=== PATIENT | female | born 1950 | race African-American/Black ===

== ENCOUNTER 2020-09-28 17:36 | Emergency (ER) | payer OTHER ==
[2020-09-28] MEDS ORDERED: SILVER NITRATE 75% APPLIC STCK 1 PKT EACH ONE (18:22)
[2020-09-28] MEDS ORDERED: LIDOCAINE 1%/EPI 1:100000 (50 ML MULTI DOSE VIAL) ONE (18:28)
[2020-09-28 18:32] VITALS: BP 151/79; PULSE 70; TEMP 98.2; BMI 28.4
== END 2020-09-28 21:49 | disposition home or self-care (01) ==
LOC: JER 17:36
DX: R58 Hemorrhage, not elsewhere classified (principal); I87.311 Chronic venous hypertension (idiopathic) with ulcer of right lower extremity
CPT/HCPCS: 99284-25

== ENCOUNTER 2021-01-04 12:40 | Inpatient (IN) | payer OTHER ==
[2021-01-04 12:46] VITALS: BMI 26.1
[2021-01-04 15:09] LABS: BASO % 0.6 % (0-2.0); EOS % 0.9 % (0-4.5); HEMOGLOBIN 13.6 GM/dL (10.7-15.3); LYMPH % 22.8 % (8-40); MCH 31.3 pg (25.7-33.7); MCHC 33.1 g/dl (32.0-36.0); MEAN CELL VOLUME 94.5 fl (80-96); MEAN PLT VOLUME 10.2 fl (7.5-11.1); MONO % 6.9 % (3.8-10.2); NEUT % 68.8 % (42.8-82.8); PLATELET COUNT 170 10^3/uL (134-434); RBC 4.34 M/mm3 (3.60-5.2); RDW 14.4 % (11.6-15.6); WHITE BLOOD COUNT 5.7 K/mm3 (4.0-10.0)
[2021-01-04 15:22] LABS: INR 1.02 (0.83-1.09); PROTHROMBIN TIME (PATIENT) 12.3 SEC (9.7-13.0)
[2021-01-04 15:24] LABS: ACTIVATED PTT 26.4 SECONDS (25.2-36.5)
[2021-01-04 15:39] LABS: CALCIUM 9.3 mg/dL (8.5-10.1)
[2021-01-04 15:40] LABS: ALBUMIN 3.3 g/dl (3.4-5.0); BLOOD UREA NITROGEN 9.6 mg/dL (7-18)
[2021-01-04 15:43] LABS: CREATININE 0.7 mg/dL (0.55-1.3)
[2021-01-04 15:45] LABS: BILIRUBIN,TOTAL 1.3 mg/dL (0.2-1); TOT PROT 9.5 g/dl (6.4-8.2)
[2021-01-04 15:51] LABS: ERYTHROCYTE SEDIMENTATION RATE 45 mm/hr (0-30)
[2021-01-04] MEDS ORDERED: AZTREONAM 1 GM in DEXTROSE 5%-WATER - 50 ML IVPB ONE (16:54)
[2021-01-04] MEDS ORDERED: VANCOMYCIN 1 GM in D5W (PRE-DOCKED) 1,000 MG/250 ML IVPB ONE (16:54)
[2021-01-04] MEDS ORDERED: AZTREONAM 1 GM VIAL (RESTRICTED TO ID) ONE (17:06)
[2021-01-04] MEDS ORDERED: VANCOMYCIN 1 GRAM (PRE-DOCKED) 1,000 MG/250 ML BAG IVPB ONE (17:06)
[2021-01-05] MEDS ORDERED: AZTREONAM 1 GM in DEXTROSE 5%-WATER - 50 ML IVPB SCH (02:00)
[2021-01-05] MEDS ORDERED: DEXTROSE 5%-WATER - 50 ML IVPB ONE ×2 (02:16→10:37)
[2021-01-05] MEDS ORDERED: AZTREONAM 1 GM VIAL (RESTRICTED TO ID) ONE ×2 (02:16→10:37)
[2021-01-05] MEDS: AZTREONAM 1 GM in DEXTROSE 5%-WATER - 50 ML IVPB SCH ×2 (02:47→11:12)
[2021-01-05] MEDS ORDERED: ACETAMINOPHEN 325 MG TABLET (FP) PO PRN (04:08)
[2021-01-05] MEDS ORDERED: VANCOMYCIN 1 GM in D5W (PRE-DOCKED) 1,000 MG/250 ML IVPB SCH (06:00)
[2021-01-05 07:46] LABS: BASO % 0.9 % (0-2.0); EOS % 1.9 % (0-4.5); HEMATOCRIT 34.6 % (32.4-45.2); HEMOGLOBIN 11.5 GM/dL (10.7-15.3); LYMPH % 33.6 % (8-40); MCH 31.5 pg (25.7-33.7); MCHC 33.3 g/dl (32.0-36.0); MEAN CELL VOLUME 94.6 fl (80-96); MEAN PLT VOLUME 8.6 fl (7.5-11.1); MONO % 12.8 % (3.8-10.2); NEUT % 50.8 % (42.8-82.8); PLATELET COUNT 137 10^3/uL (134-434); RBC 3.65 M/mm3 (3.60-5.2); RDW 14.5 % (11.6-15.6); WHITE BLOOD COUNT 4.7 K/mm3 (4.0-10.0)
[2021-01-05 08:07] LABS: CALCIUM 8.7 mg/dL (8.5-10.1)
[2021-01-05 08:11] LABS: CREATININE 0.6 mg/dL (0.55-1.3)
[2021-01-05 08:12] LABS: BILIRUBIN,TOTAL 0.7 mg/dL (0.2-1)
[2021-01-05] MEDS ORDERED: POTASSIUM CHLORIDE ORAL LIQUID 20 MEQ/15 ML PO ONE ×2 (08:12→16:54)
[2021-01-05 08:15] LABS: ALBUMIN 2.6 g/dl (3.4-5.0); TOT PROT 7.3 g/dl (6.4-8.2)
[2021-01-05] MEDS ORDERED: amLODIPine BESYLATE 5 MG TABLET (FP) PO SCH (10:00)
[2021-01-05] MEDS: ENOXAPARIN NA (PORCINE) 40 MG/0.4 ML DISP.SYRIN SQ SCH (11:13)
[2021-01-05] MEDS: ESCITALOPRAM OXALATE 10 MG TABLET PO SCH (11:13)
[2021-01-05] MEDS: LOSARTAN POTASSIUM 50 MG TABLET PO SCH (13:14)
[2021-01-05 16:02] LABS: BASO % 0.6 % (0-2.0); EOS % 1.4 % (0-4.5); HEMATOCRIT 38.7 % (32.4-45.2); HEMOGLOBIN 12.8 GM/dL (10.7-15.3); LYMPH % 28.3 % (8-40); MCH 31.5 pg (25.7-33.7); MCHC 33.2 g/dl (32.0-36.0); MEAN CELL VOLUME 94.9 fl (80-96); MEAN PLT VOLUME 9.4 fl (7.5-11.1); MONO % 8.7 % (3.8-10.2); PLATELET COUNT 155 10^3/uL (134-434); RBC 4.08 M/mm3 (3.60-5.2); RDW 14.3 % (11.6-15.6); WHITE BLOOD COUNT 4.7 K/mm3 (4.0-10.0)
[2021-01-05 16:27] LABS: CALCIUM 9.1 mg/dL (8.5-10.1)
[2021-01-05 16:28] LABS: BLOOD UREA NITROGEN 10.4 mg/dL (7-18)
[2021-01-05 16:31] LABS: CREATININE 0.7 mg/dL (0.55-1.3)
[2021-01-05] MEDS ORDERED: DEXTROSE 5%-WATER 100 ML IVPB ONE (16:58)
[2021-01-05] MEDS: CEFTRIAXONE 2 GM in DEXTROSE 5%-WATER 100 ML IVPB SCH (17:01)
[2021-01-05] MEDS: VANCOMYCIN 1 GRAM (PRE-DOCKED) 1,000 MG/250 ML BAG IVPB SCH (18:16)
[2021-01-06] MEDS: VANCOMYCIN 1 GRAM (PRE-DOCKED) 1,000 MG/250 ML BAG IVPB SCH ×2 (04:12→17:24)
[2021-01-06 08:48] LABS: BASO % 0.7 % (0-2.0); EOS % 1.8 % (0-4.5); HEMATOCRIT 37.3 % (32.4-45.2); HEMOGLOBIN 12.4 GM/dL (10.7-15.3); LYMPH % 42.8 % (8-40); MCH 32.1 pg (25.7-33.7); MCHC 33.2 g/dl (32.0-36.0); MEAN CELL VOLUME 96.7 fl (80-96); MEAN PLT VOLUME 9.4 fl (7.5-11.1); MONO % 11.9 % (3.8-10.2); NEUT % 42.8 % (42.8-82.8); PLATELET COUNT 158 10^3/uL (134-434); RBC 3.86 M/mm3 (3.60-5.2); RDW 14.5 % (11.6-15.6); WHITE BLOOD COUNT 3.7 K/mm3 (4.0-10.0)
[2021-01-06] MEDS ORDERED: DEXTROSE 5%-WATER 100 ML IVPB ONE (09:02)
[2021-01-06 09:11] LABS: ALBUMIN 2.9 g/dl (3.4-5.0); BLOOD UREA NITROGEN 7.9 mg/dL (7-18); CREATININE 0.6 mg/dL (0.55-1.3)
[2021-01-06 09:12] LABS: BILIRUBIN,TOTAL 0.5 mg/dL (0.2-1)
[2021-01-06 09:13] LABS: CALCIUM 9.2 mg/dL (8.5-10.1)
[2021-01-06 09:14] LABS: MAGNESIUM 1.7 mg/dL (1.8-2.4)
[2021-01-06] MEDS: ESCITALOPRAM OXALATE 10 MG TABLET PO SCH (09:23)
[2021-01-06] MEDS: ENOXAPARIN NA (PORCINE) 40 MG/0.4 ML DISP.SYRIN SQ SCH (09:23)
[2021-01-06] MEDS: LOSARTAN POTASSIUM 50 MG TABLET PO SCH (09:23)
[2021-01-06] MEDS: amLODIPine BESYLATE 5 MG TABLET (FP) PO SCH (09:23)
[2021-01-06] MEDS: CEFTRIAXONE 2 GM in DEXTROSE 5%-WATER 100 ML IVPB SCH (09:24)
[2021-01-06] MEDS ORDERED: methaDONE HCL 10 MG TABLET ONE (11:34)
[2021-01-06] MEDS ORDERED: methaDONE HCL 40 MG DISPERSABLE TABLET ONE (11:35)
[2021-01-06] MEDS ORDERED: PT OWN MED DRAWER 7, Y5N ONE (14:32)
[2021-01-07] MEDS: VANCOMYCIN 1 GRAM (PRE-DOCKED) 1,000 MG/250 ML BAG IVPB SCH ×2 (04:29→17:14)
[2021-01-07] MEDS ORDERED: methaDONE HCL 40 MG DISPERSABLE TABLET ONE (05:45)
[2021-01-07] MEDS ORDERED: methaDONE HCL 10 MG TABLET ONE (05:45)
[2021-01-07] MEDS ORDERED: DEXTROSE 5%-WATER 100 ML IVPB ONE (09:06)
[2021-01-07] MEDS: amLODIPine BESYLATE 5 MG TABLET (FP) PO SCH (10:01)
[2021-01-07] MEDS: ESCITALOPRAM OXALATE 10 MG TABLET PO SCH (10:01)
[2021-01-07] MEDS: LOSARTAN POTASSIUM 50 MG TABLET PO SCH (10:01)
[2021-01-07] MEDS: ENOXAPARIN NA (PORCINE) 40 MG/0.4 ML DISP.SYRIN SQ SCH (10:01)
[2021-01-07] MEDS: CEFTRIAXONE 2 GM in DEXTROSE 5%-WATER 100 ML IVPB SCH (10:02)
[2021-01-07] MEDS: MAG HYDROX/ALH/SMC/DPHA/LIDO 240 ML MOUTHWASH MM SCH ×3 (12:49→23:40)
[2021-01-07] MEDS ORDERED: PT OWN MED DRAWER 7, Y5N ONE (23:38)
[2021-01-08] MEDS: VANCOMYCIN 1 GRAM (PRE-DOCKED) 1,000 MG/250 ML BAG IVPB SCH ×2 (04:45→17:05)
[2021-01-08] MEDS ORDERED: methaDONE HCL 40 MG DISPERSABLE TABLET ONE (05:34)
[2021-01-08] MEDS ORDERED: methaDONE HCL 10 MG TABLET ONE (05:34)
[2021-01-08] MEDS: MAG HYDROX/ALH/SMC/DPHA/LIDO 240 ML MOUTHWASH MM SCH ×3 (06:05→18:11)
[2021-01-08] MEDS ORDERED: DEXTROSE 5%-WATER 100 ML IVPB ONE (09:30)
[2021-01-08] MEDS: ENOXAPARIN NA (PORCINE) 40 MG/0.4 ML DISP.SYRIN SQ SCH (09:34)
[2021-01-08] MEDS: ESCITALOPRAM OXALATE 10 MG TABLET PO SCH (09:34)
[2021-01-08] MEDS: LOSARTAN POTASSIUM 50 MG TABLET PO SCH (09:34)
[2021-01-08] MEDS: CEFTRIAXONE 2 GM in DEXTROSE 5%-WATER 100 ML IVPB SCH (09:35)
[2021-01-08] MEDS: amLODIPine BESYLATE 5 MG TABLET (FP) PO SCH (09:35)
[2021-01-08 09:38] LABS: HEMATOCRIT 37.3 % (32.4-45.2); HEMOGLOBIN 12.4 GM/dL (10.7-15.3); MCH 32.3 pg (25.7-33.7); MCHC 33.2 g/dl (32.0-36.0); MEAN CELL VOLUME 97.2 fl (80-96); MEAN PLT VOLUME 9.7 fl (7.5-11.1); PLATELET COUNT 160 10^3/uL (134-434); RBC 3.84 M/mm3 (3.60-5.2); RDW 14.8 % (11.6-15.6); WHITE BLOOD COUNT 5.6 K/mm3 (4.0-10.0)
[2021-01-08 10:04] LABS: BLOOD UREA NITROGEN 16.9 mg/dL (7-18); CALCIUM 9.4 mg/dL (8.5-10.1)
[2021-01-08 10:08] LABS: CREATININE 1.6 mg/dL (0.55-1.3)
[2021-01-08] MEDS ORDERED: PT OWN MED DRAWER 7, Y5N ONE (12:16)
[2021-01-08] MEDS: PHENOL 177 ML SPRAY BOTTLE MM PRN (12:18)
[2021-01-09] MEDS: MAG HYDROX/ALH/SMC/DPHA/LIDO 240 ML MOUTHWASH MM SCH ×4 (00:20→19:24)
[2021-01-09] MEDS: VANCOMYCIN 1 GRAM (PRE-DOCKED) 1,000 MG/250 ML BAG IVPB SCH ×2 (04:53→16:21)
[2021-01-09] MEDS ORDERED: methaDONE HCL 10 MG TABLET ONE (06:40)
[2021-01-09] MEDS ORDERED: methaDONE HCL 40 MG DISPERSABLE TABLET ONE (06:41)
[2021-01-09] MEDS ORDERED: DEXTROSE 5%-WATER 100 ML IVPB ONE (09:42)
[2021-01-09] MEDS: amLODIPine BESYLATE 5 MG TABLET (FP) PO SCH (09:46)
[2021-01-09] MEDS: LOSARTAN POTASSIUM 50 MG TABLET PO SCH (09:46)
[2021-01-09] MEDS: ESCITALOPRAM OXALATE 10 MG TABLET PO SCH (09:46)
[2021-01-09] MEDS: ENOXAPARIN NA (PORCINE) 40 MG/0.4 ML DISP.SYRIN SQ SCH (09:46)
[2021-01-09] MEDS: CEFTRIAXONE 2 GM in DEXTROSE 5%-WATER 100 ML IVPB SCH (09:47)
[2021-01-09] MEDS: PHENOL 177 ML SPRAY BOTTLE MM PRN (11:39)
[2021-01-09] MEDS ORDERED: PT OWN MED DRAWER 7, Y5N ONE (11:41)
[2021-01-10] MEDS: MAG HYDROX/ALH/SMC/DPHA/LIDO 240 ML MOUTHWASH MM SCH ×4 (00:30→17:38)
[2021-01-10] MEDS: VANCOMYCIN 1 GRAM (PRE-DOCKED) 1,000 MG/250 ML BAG IVPB SCH (05:10)
[2021-01-10] MEDS ORDERED: methaDONE HCL 40 MG DISPERSABLE TABLET ONE (06:15)
[2021-01-10] MEDS ORDERED: methaDONE HCL 10 MG TABLET ONE (06:15)
[2021-01-10 09:14] LABS: BASO % 0.3 % (0-2.0); EOS % 0.9 % (0-4.5); HEMATOCRIT 37.6 % (32.4-45.2); HEMOGLOBIN 12.5 GM/dL (10.7-15.3); LYMPH % 15.1 % (8-40); MCH 31.8 pg (25.7-33.7); MCHC 33.2 g/dl (32.0-36.0); MEAN CELL VOLUME 95.8 fl (80-96); MEAN PLT VOLUME 9.3 fl (7.5-11.1); MONO % 9.6 % (3.8-10.2); NEUT % 74.1 % (42.8-82.8); PLATELET COUNT 153 10^3/uL (134-434); RBC 3.92 M/mm3 (3.60-5.2); RDW 14.9 % (11.6-15.6); WHITE BLOOD COUNT 5.3 K/mm3 (4.0-10.0)
[2021-01-10] MEDS ORDERED: DEXTROSE 5%-WATER 100 ML IVPB ONE (09:26)
[2021-01-10] MEDS: CEFTRIAXONE 2 GM in DEXTROSE 5%-WATER 100 ML IVPB SCH (09:31)
[2021-01-10] MEDS: ENOXAPARIN NA (PORCINE) 40 MG/0.4 ML DISP.SYRIN SQ SCH (09:31)
[2021-01-10] MEDS: ESCITALOPRAM OXALATE 10 MG TABLET PO SCH (09:31)
[2021-01-10] MEDS: amLODIPine BESYLATE 5 MG TABLET (FP) PO SCH (09:36)
[2021-01-10] MEDS: LOSARTAN POTASSIUM 50 MG TABLET PO SCH (09:36)
[2021-01-10 09:40] LABS: BLOOD UREA NITROGEN 17.5 mg/dL (7-18); CALCIUM 9.1 mg/dL (8.5-10.1)
[2021-01-11] MEDS: MAG HYDROX/ALH/SMC/DPHA/LIDO 240 ML MOUTHWASH MM SCH ×4 (00:10→19:14)
[2021-01-11] MEDS ORDERED: methaDONE HCL 10 MG TABLET ONE (06:39)
[2021-01-11] MEDS ORDERED: methaDONE HCL 40 MG DISPERSABLE TABLET ONE (06:39)
[2021-01-11] MEDS ORDERED: DEXTROSE 5%-WATER 100 ML IVPB ONE (09:27)
[2021-01-11 09:29] LABS: HEMATOCRIT 34.7 % (32.4-45.2); HEMOGLOBIN 11.6 GM/dL (10.7-15.3); MCH 32.4 pg (25.7-33.7); MCHC 33.5 g/dl (32.0-36.0); MEAN CELL VOLUME 96.7 fl (80-96); MEAN PLT VOLUME 9.4 fl (7.5-11.1); PLATELET COUNT 146 10^3/uL (134-434); RBC 3.59 M/mm3 (3.60-5.2); RDW 14.9 % (11.6-15.6); WHITE BLOOD COUNT 8.4 K/mm3 (4.0-10.0)
[2021-01-11] MEDS: amLODIPine BESYLATE 5 MG TABLET (FP) PO SCH (09:32)
[2021-01-11] MEDS: LOSARTAN POTASSIUM 50 MG TABLET PO SCH (09:33)
[2021-01-11] MEDS: ENOXAPARIN NA (PORCINE) 40 MG/0.4 ML DISP.SYRIN SQ SCH (09:33)
[2021-01-11] MEDS: CEFTRIAXONE 2 GM in DEXTROSE 5%-WATER 100 ML IVPB SCH (09:33)
[2021-01-11] MEDS: ESCITALOPRAM OXALATE 10 MG TABLET PO SCH (09:33)
[2021-01-11 10:03] VITALS: PULSE 59
[2021-01-11 10:07] LABS: ALBUMIN 2.8 g/dl (3.4-5.0)
[2021-01-11 10:08] LABS: CREATININE 2.2 mg/dL (0.55-1.3)
[2021-01-11 10:09] LABS: BLOOD UREA NITROGEN 22.2 mg/dL (7-18); TOT PROT 7.9 g/dl (6.4-8.2)
[2021-01-11 10:11] LABS: BILIRUBIN,TOTAL 0.5 mg/dL (0.2-1)
[2021-01-11] MEDS ORDERED: PT OWN MED DRAWER 7, Y5N ONE (13:02)
[2021-01-11 13:18] VITALS: BP 111/64; TEMP 98.1
[2021-01-11] MEDS ORDERED: SODIUM CHLORIDE 0.45% 1,000 ML IV SCH (15:15)
[2021-01-11 17:57] LABS: PH,URINE 5.5 (5.0-8.0); URINE APPEARANCE TURBID; URINE BILIRUBIN NEGATIVE (NEGATIVE); URINE COLOR YELLOW; URINE GLUCOSE (UA) NEGATIVE (NEGATIVE); URINE KETONE TRACE (NEGATIVE); URINE LEUK ESTERASE NEGATIVE (NEGATIVE); URINE NITRITE NEGATIVE (NEGATIVE); URINE PROTEIN TRACE (NEGATIVE); URINE UROBILINOGEN 0.2 mg/dL (0.2-1.0)
[2021-01-11] MEDS ORDERED: CEPHALEXIN MONOHYDRATE 500 MG CAPSULE (UD) PO SCH (22:00)
== END 2021-01-11 20:42 | disposition home health service (06) | DRG 603 ==
LOC: JER 12:40 → JERBED 16:39 → J6S 21:17
PROVIDERS: ADMIT Internal Medicine; ATTEND Family Medicine
PROC: HZ91ZZZ Pharmacotherapy for Substance Abuse Treatment, Methadone Maintenance (ICD-10-PCS; principal; 2021-01-04)
DX: L03.116 Cellulitis of left lower limb (principal); I87.331 Chronic venous hypertension (idiopathic) with ulcer and inflammation of right lower extremity; N17.9 Acute kidney failure, unspecified; L97.919 Non-pressure chronic ulcer of unspecified part of right lower leg with unspecified severity; F11.20 Opioid dependence, uncomplicated; I10 Essential (primary) hypertension; F32.9 Major depressive disorder, single episode, unspecified; D72.819 Decreased white blood cell count, unspecified; I73.9 Peripheral vascular disease, unspecified; E11.51 Type 2 diabetes mellitus with diabetic peripheral angiopathy without gangrene
CPT/HCPCS: 36415; 80048; 80053; 81003; 82436; 82570; 83036; 83735; 84133; 84300; 85025; 85027; 85610; 85651; 85730; 86850; 86900; 86901; 87040; 93005; 93010; 93971-TC; 99285-25; C9803; G0463-25; U0003; U0005

== ENCOUNTER 2022-02-26 16:27 | Inpatient (IN) | payer OTHER ==
[2022-02-26] MEDS ORDERED: ACETAMINOPHEN 1000 MG/100 ML BAG IVPB ONE (17:58)
[2022-02-26] MEDS ORDERED: PIPERACILLIN/TAZOB 3.375 GM 3.375 GM in DEXTROSE 5%-WATER - 50 ML IVPB ONE (17:59)
[2022-02-26] MEDS ORDERED: CEFEPIME HCL/D5W 2 GM/50 ML BAG IVPB ONE (17:59)
[2022-02-26 18:50] LABS: INR 1.02 (0.83-1.09); PROTHROMBIN TIME (PATIENT) 11.7 SEC (9.7-13.0)
[2022-02-26] MEDS ORDERED: ACETAMINOPHEN INJECTION 100 ML IVPB ONE (18:50)
[2022-02-26 18:54] LABS: ACTIVATED PTT 19.4 SECONDS (25.2-36.5)
[2022-02-26] MEDS ORDERED: CEFEPIME 2 GM/100 ML BAG IVPB ONE ×2 (18:55→18:56)
[2022-02-26] MEDS ORDERED: PIPERACILLIN/TAZOB 3.375 GM 3.375 GM/50 ML BAG IVPB ONE (18:55)
[2022-02-26 19:02] LABS: CALCIUM 9.9 mg/dL (8.5-10.1)
[2022-02-26 19:03] LABS: ALBUMIN 2.4 g/dl (3.4-5.0); BLOOD UREA NITROGEN 11.6 mg/dL (7-18)
[2022-02-26 19:06] LABS: CREATININE 0.6 mg/dL (0.55-1.3)
[2022-02-26 19:08] LABS: BILIRUBIN,TOTAL 0.8 mg/dL (0.2-1)
[2022-02-26 20:29] LABS: BASO % 0.6 % (0-2.0); EOS % 0.9 % (0-4.5); HEMATOCRIT 38.4 % (32.4-45.2); HEMOGLOBIN 12.5 GM/dL (10.7-15.3); LYMPH % 37.2 % (8-40); MCH 31.8 pg (25.7-33.7); MCHC 32.4 g/dl (32.0-36.0); MEAN CELL VOLUME 98.2 fl (80-96); MEAN PLT VOLUME 8.4 fl (7.5-11.1); NEUT % 52.3 % (42.8-82.8); PLATELET COUNT 196 10^3/uL (134-434); RBC 3.92 M/mm3 (3.60-5.2); RDW 13.5 % (11.6-15.6); WHITE BLOOD COUNT 4.7 K/mm3 (4.0-10.0)
[2022-02-26 20:58] LABS: ALBUMIN 2.6 g/dl (3.4-5.0); CALCIUM 9.7 mg/dL (8.5-10.1)
[2022-02-26 20:59] LABS: BLOOD UREA NITROGEN 10.4 mg/dL (7-18)
[2022-02-26 21:02] LABS: CREATININE 0.6 mg/dL (0.55-1.3)
[2022-02-26 21:04] LABS: BILIRUBIN,TOTAL 0.6 mg/dL (0.2-1); TOT PROT 8.2 g/dl (6.4-8.2)
[2022-02-26] MEDS ORDERED: DOCUSATE SODIUM 100 MG CAPSULE (FP) PO PRN (23:39)
[2022-02-26] MEDS ORDERED: ACETAMINOPHEN 1000 MG/100 ML BAG IVPB PRN (23:47)
[2022-02-27 00:04] VITALS: BMI 21.0
[2022-02-27 11:14] LABS: BASO % 0.2 % (0-2.0); EOS % 1.5 % (0-4.5); HEMATOCRIT 34.6 % (32.4-45.2); HEMOGLOBIN 11.5 GM/dL (10.7-15.3); LYMPH % 48.5 % (8-40); MCH 32.6 pg (25.7-33.7); MCHC 33.3 g/dl (32.0-36.0); MEAN PLT VOLUME 9.1 fl (7.5-11.1); MONO % 12.3 % (3.8-10.2); NEUT % 37.5 % (42.8-82.8); PLATELET COUNT 178 10^3/uL (134-434); RBC 3.53 M/mm3 (3.60-5.2); RDW 13.4 % (11.6-15.6); WHITE BLOOD COUNT 4.5 K/mm3 (4.0-10.0)
[2022-02-27] MEDS: ASPIRIN 325 MG TABLET PO SCH (11:31)
[2022-02-27] MEDS: COLLAGENASE CLOSTRIDIUM HIST. 30 GRAMS TUBE TP SCH ×2 (11:31→11:38)
[2022-02-27] MEDS: LOSARTAN POTASSIUM 50 MG TABLET PO SCH (11:31)
[2022-02-27] MEDS: amLODIPine BESYLATE 10 MG TABLET (FP) PO SCH (11:31)
[2022-02-27 11:38] LABS: BLOOD UREA NITROGEN 11.5 mg/dL (7-18)
[2022-02-27 11:40] LABS: CALCIUM 9.4 mg/dL (8.5-10.1)
[2022-02-27 11:41] LABS: CREATININE 0.6 mg/dL (0.55-1.3)
[2022-02-27] MEDS ORDERED: CEFEPIME 2 GM in DEXTROSE 5%-WATER 100 ML IVPB SCH (12:00)
[2022-02-27] MEDS ORDERED: PIPERACILLIN/TAZOB 3.375 GM 3.375 GM in DEXTROSE 5%-WATER - 50 ML IVPB SCH (12:00)
[2022-02-27] MEDS ORDERED: ACETAMINOPHEN 325 MG TABLET (FP) PO PRN (23:39)
[2022-02-28] MEDS: ASPIRIN 325 MG TABLET PO SCH (09:50)
[2022-02-28] MEDS: amLODIPine BESYLATE 10 MG TABLET (FP) PO SCH (09:51)
[2022-02-28] MEDS: LOSARTAN POTASSIUM 50 MG TABLET PO SCH (09:51)
[2022-02-28] MEDS: COLLAGENASE CLOSTRIDIUM HIST. 30 GRAMS TUBE TP SCH (13:59)
[2022-03-01 06:47] VITALS: RESP 18
[2022-03-01] MEDS: LOSARTAN POTASSIUM 50 MG TABLET PO SCH (10:26)
[2022-03-01] MEDS: amLODIPine BESYLATE 10 MG TABLET (FP) PO SCH (10:26)
[2022-03-01] MEDS: ASPIRIN 325 MG TABLET PO SCH (10:42)
[2022-03-01 10:47] VITALS: BP 157/91; PULSE 72; TEMP 98.3
[2022-03-01] MEDS ORDERED: ASPIRIN 81 MG CHEWABLE TABLETS PO SCH (11:00)
[2022-03-01] MEDS: COLLAGENASE CLOSTRIDIUM HIST. 30 GRAMS TUBE TP SCH (14:18)
== END 2022-03-01 16:20 | disposition home health service (06) | DRG 300 ==
LOC: JER 16:27 → JERBED 17:37 → J8W 23:48 → J7W 02-27 11:04
PROVIDERS: ADMIT Internal Medicine; ATTEND Family Medicine
DX: I83.009 Varicose veins of unspecified lower extremity with ulcer of unspecified site (principal); F11.20 Opioid dependence, uncomplicated; L97.919 Non-pressure chronic ulcer of unspecified part of right lower leg with unspecified severity; L03.116 Cellulitis of left lower limb; L97.929 Non-pressure chronic ulcer of unspecified part of left lower leg with unspecified severity; I10 Essential (primary) hypertension; F32.A Depression, unspecified; Z86.73 Personal history of transient ischemic attack (TIA), and cerebral infarction without residual deficits; F17.210 Nicotine dependence, cigarettes, uncomplicated; I87.2 Venous insufficiency (chronic) (peripheral); Z88.0 Allergy status to penicillin; I73.9 Peripheral vascular disease, unspecified; R47.1 Dysarthria and anarthria; R13.10 Dysphagia, unspecified
CPT/HCPCS: 36415; 70551-TC; 71045-TC-FY; 74230-TC-FY; 80048; 80053; 82550; 82607; 83735; 84100; 84443; 85025; 85610; 85730; 86850; 86900; 86901; 87040; 92611-GN; 93005; 93010; 97116-GP; 97162-GP; 99285-25; C9803-CS; G0463-25; U0003; U0005

== ENCOUNTER 2022-05-14 15:27 | Inpatient (IN) | payer OTHER ==
[2022-05-14] MEDS ORDERED: VANCOMYCIN 1 GM in D5W (PRE-DOCKED) 1,000 MG/250 ML IVPB ONE (19:09)
[2022-05-14] MEDS ORDERED: CEFTRIAXONE 1,000 MG in DEXTROSE 5%-WATER - 50 ML IVPB ONE (19:10)
[2022-05-14 19:22] LABS: HEMATOCRIT 34.6 % (32.4-45.2); HEMOGLOBIN 10.9 GM/dL (10.7-15.3); MCH 30.5 pg (25.7-33.7); MCHC 31.6 g/dl (32.0-36.0); MEAN CELL VOLUME 96.6 fl (80-96); MEAN PLT VOLUME 9.7 fl (7.5-11.1); PLATELET COUNT 177 10^3/uL (134-434); RBC 3.58 M/mm3 (3.60-5.2); WHITE BLOOD COUNT 5.6 K/mm3 (4.0-10.0)
[2022-05-14] MEDS ORDERED: VANCOMYCIN/WATER FOR INJ (PEG) 1,000 MG/200 ML BAG IVPB ONE (19:48)
[2022-05-14] MEDS ORDERED: CEFTRIAXONE 1 GM/50 ML BAG ONE (19:48)
[2022-05-14 19:50] LABS: CALCIUM 9.7 mg/dL (8.5-10.1)
[2022-05-14 19:51] LABS: ALBUMIN 2.5 g/dl (3.4-5.0); BLOOD UREA NITROGEN 14.8 mg/dL (7-18)
[2022-05-14 19:54] LABS: CREATININE 0.6 mg/dL (0.55-1.3)
[2022-05-14 19:55] LABS: BILIRUBIN,TOTAL 0.6 mg/dL (0.2-1); TOT PROT 7.6 g/dl (6.4-8.2)
[2022-05-14] MEDS ORDERED: ACETAMINOPHEN 1000 MG/100 ML BAG IVPB ONE (20:06)
[2022-05-14] MEDS ORDERED: ACETAMINOPHEN INJECTION 100 ML IVPB ONE (20:30)
[2022-05-14 21:19] LABS: CALCIUM 9.2 mg/dL (8.5-10.1)
[2022-05-14 21:20] LABS: BLOOD UREA NITROGEN 12.9 mg/dL (7-18)
[2022-05-14 21:23] LABS: CREATININE 0.6 mg/dL (0.55-1.3)
[2022-05-15 07:37] LABS: BASO % 0.4 % (0-2.0); EOS % 1.6 % (0-4.5); HEMATOCRIT 30.6 % (32.4-45.2); HEMOGLOBIN 9.8 GM/dL (10.7-15.3); LYMPH % 45.7 % (8-40); MCH 31.3 pg (25.7-33.7); MCHC 32.2 g/dl (32.0-36.0); MEAN PLT VOLUME 9.4 fl (7.5-11.1); MONO % 14.5 % (3.8-10.2); NEUT % 37.8 % (42.8-82.8); PLATELET COUNT 156 10^3/uL (134-434); RBC 3.15 M/mm3 (3.60-5.2); RDW 12.9 % (11.6-15.6); WHITE BLOOD COUNT 4.7 K/mm3 (4.0-10.0)
[2022-05-15 08:15] LABS: ALBUMIN 2.2 g/dl (3.4-5.0); BLOOD UREA NITROGEN 15.1 mg/dL (7-18); CALCIUM 9.3 mg/dL (8.5-10.1)
[2022-05-15 08:18] LABS: CREATININE 0.6 mg/dL (0.55-1.3)
[2022-05-15 08:20] LABS: BILIRUBIN,TOTAL 0.4 mg/dL (0.2-1); TOT PROT 6.4 g/dl (6.4-8.2)
[2022-05-15] MEDS ORDERED: ACETAMINOPHEN 325 MG TABLET (FP) PO PRN (08:38)
[2022-05-15] MEDS ORDERED: ASPIRIN 81 MG CHEWABLE TABLETS ONE (10:12)
[2022-05-15] MEDS ORDERED: LOSARTAN POTASSIUM 50 MG TABLET ONE (10:12)
[2022-05-15] MEDS ORDERED: ESCITALOPRAM OXALATE 10 MG TABLET ONE (10:12)
[2022-05-15] MEDS ORDERED: HEPARIN NA (PORCINE) 5,000 UNITS/ML 1ML VIAL ONE ×2 (10:12→22:59)
[2022-05-15] MEDS ORDERED: amLODIPine BESYLATE 10 MG TABLET (FP) ONE (10:12)
[2022-05-15] MEDS: LOSARTAN POTASSIUM 50 MG TABLET PO SCH (10:26)
[2022-05-15] MEDS: ESCITALOPRAM OXALATE 10 MG TABLET PO SCH (10:26)
[2022-05-15] MEDS: HEPARIN NA (PORCINE) 5,000 UNITS/ML 1ML VIAL SQ SCH ×2 (10:26→23:07)
[2022-05-15] MEDS: amLODIPine BESYLATE 10 MG TABLET (FP) PO SCH (10:26)
[2022-05-15] MEDS: ASPIRIN 81 MG CHEWABLE TABLETS PO SCH (10:26)
[2022-05-15] MEDS ORDERED: CEFTRIAXONE 1 GM/50 ML BAG ONE (12:22)
[2022-05-15] MEDS: CEFTRIAXONE 1 GM in DEXTROSE 5%-WATER - 50 ML IVPB SCH (12:29)
[2022-05-15] MEDS ORDERED: VANCOMYCIN/WATER FOR INJ (PEG) 1,000 MG/200 ML BAG IVPB ONE (20:00)
[2022-05-15] MEDS ORDERED: VANCOMYCIN/WATER 1250 MG 1,250 MG/250 ML BAG IVPB SCH (20:00)
[2022-05-15] MEDS ORDERED: VANCOMYCIN/WATER 1250 MG 1,250 MG/250 ML BAG IVPB ONE (20:04)
[2022-05-16 09:45] LABS: HEMATOCRIT 30.7 % (32.4-45.2); HEMOGLOBIN 9.9 GM/dL (10.7-15.3); MCH 31.1 pg (25.7-33.7); MCHC 32.3 g/dl (32.0-36.0); MEAN CELL VOLUME 96.3 fl (80-96); MEAN PLT VOLUME 9.3 fl (7.5-11.1); PLATELET COUNT 160 10^3/uL (134-434); RBC 3.19 M/mm3 (3.60-5.2); RDW 12.7 % (11.6-15.6); WHITE BLOOD COUNT 4.5 K/mm3 (4.0-10.0)
[2022-05-16 10:28] LABS: ALBUMIN 2.3 g/dl (3.4-5.0); CALCIUM 9.3 mg/dL (8.5-10.1)
[2022-05-16 10:30] LABS: CREATININE 0.6 mg/dL (0.55-1.3)
[2022-05-16 10:32] LABS: BILIRUBIN,TOTAL 0.4 mg/dL (0.2-1); TOT PROT 6.6 g/dl (6.4-8.2)
[2022-05-16 11:13] LABS: IRON SERUM 43 ug/dL (50-175); TOTAL IRON BINDING CAPACITY 211 ug/dL (250-450)
[2022-05-16] MEDS ORDERED: methaDONE HCL 40 MG DISPERSABLE TABLET ONE (11:20)
[2022-05-16] MEDS ORDERED: methaDONE HCL 10 MG TABLET ONE (11:20)
[2022-05-16] MEDS ORDERED: ASPIRIN 81 MG CHEWABLE TABLETS ONE (11:21)
[2022-05-16] MEDS ORDERED: LOSARTAN POTASSIUM 50 MG TABLET ONE (11:21)
[2022-05-16] MEDS ORDERED: amLODIPine BESYLATE 10 MG TABLET (FP) ONE (11:21)
[2022-05-16] MEDS ORDERED: HEPARIN NA (PORCINE) 5,000 UNITS/ML 1ML VIAL ONE (11:21)
[2022-05-16] MEDS ORDERED: ESCITALOPRAM OXALATE 10 MG TABLET ONE (11:21)
[2022-05-16] MEDS ORDERED: CEFTRIAXONE 1 GM/50 ML BAG ONE (11:22)
[2022-05-16] MEDS: amLODIPine BESYLATE 10 MG TABLET (FP) PO SCH (11:24)
[2022-05-16] MEDS: LOSARTAN POTASSIUM 50 MG TABLET PO SCH (11:24)
[2022-05-16] MEDS: ASPIRIN 81 MG CHEWABLE TABLETS PO SCH (11:24)
[2022-05-16] MEDS: ESCITALOPRAM OXALATE 10 MG TABLET PO SCH (11:25)
[2022-05-16] MEDS: CEFTRIAXONE 1 GM in DEXTROSE 5%-WATER - 50 ML IVPB SCH (11:25)
[2022-05-16] MEDS: HEPARIN NA (PORCINE) 5,000 UNITS/ML 1ML VIAL SQ SCH ×2 (11:25→23:10)
[2022-05-16] MEDS ORDERED: DEXTROSE 5%-0.45% SALINE 995 ML with POTASSIUM CHLORIDE 10 MEQ IV SCH (15:30)
[2022-05-16] MEDS ORDERED: D5-1/2NS+10 MEQ KCL - 10 MEQ/1,000 ML INFUS.BAG IV SCH (16:50)
[2022-05-16] MEDS: COLLAGENASE CLOSTRIDIUM HIST. 30 GRAMS TUBE TP SCH (17:53)
[2022-05-16] MEDS ORDERED: VANCOMYCIN/WATER FOR INJ (PEG) 1,000 MG/200 ML BAG IVPB SCH (20:00)
[2022-05-16] MEDS: metroNIDAZOLE 250 MG TABLET PO SCH (23:11)
[2022-05-17] MEDS ORDERED: methaDONE HCL 10 MG TABLET ONE (05:48)
[2022-05-17] MEDS: CEFTRIAXONE 1 GM in DEXTROSE 5%-WATER - 50 ML IVPB SCH (10:44)
[2022-05-17] MEDS: amLODIPine BESYLATE 10 MG TABLET (FP) PO SCH (10:44)
[2022-05-17] MEDS: LOSARTAN POTASSIUM 50 MG TABLET PO SCH (10:44)
[2022-05-17] MEDS: ESCITALOPRAM OXALATE 10 MG TABLET PO SCH (10:45)
[2022-05-17] MEDS: metroNIDAZOLE 250 MG TABLET PO SCH ×2 (10:45→21:59)
[2022-05-17] MEDS: HEPARIN NA (PORCINE) 5,000 UNITS/ML 1ML VIAL SQ SCH ×2 (10:45→21:59)
[2022-05-17] MEDS: COLLAGENASE CLOSTRIDIUM HIST. 30 GRAMS TUBE TP SCH (10:45)
[2022-05-17] MEDS: ASPIRIN 81 MG CHEWABLE TABLETS PO SCH (10:45)
[2022-05-17 11:13] LABS: CALCIUM 9.6 mg/dL (8.5-10.1)
[2022-05-17 11:15] LABS: ALBUMIN 2.3 g/dl (3.4-5.0); BLOOD UREA NITROGEN 9.2 mg/dL (7-18)
[2022-05-17 11:18] LABS: BILIRUBIN,TOTAL 0.7 mg/dL (0.2-1); CREATININE 0.5 mg/dL (0.55-1.3); TOT PROT 6.8 g/dl (6.4-8.2)
[2022-05-17 16:41] VITALS: BMI 21.6
[2022-05-17] MEDS: D5-1/2NS+10 MEQ KCL - 10 MEQ/1,000 ML INFUS.BAG IV SCH (16:50)
[2022-05-18] MEDS: HEPARIN NA (PORCINE) 5,000 UNITS/ML 1ML VIAL SQ SCH ×2 (09:04→22:23)
[2022-05-18] MEDS: CEFTRIAXONE 1 GM in DEXTROSE 5%-WATER - 50 ML IVPB SCH (09:06)
[2022-05-18] MEDS: metroNIDAZOLE 250 MG TABLET PO SCH ×2 (10:50→22:23)
[2022-05-18] MEDS: amLODIPine BESYLATE 10 MG TABLET (FP) PO SCH (10:50)
[2022-05-18] MEDS: ESCITALOPRAM OXALATE 10 MG TABLET PO SCH (10:50)
[2022-05-18] MEDS: COLLAGENASE CLOSTRIDIUM HIST. 30 GRAMS TUBE TP SCH (10:51)
[2022-05-18] MEDS: LOSARTAN POTASSIUM 50 MG TABLET PO SCH (10:51)
[2022-05-18] MEDS: ASPIRIN 81 MG CHEWABLE TABLETS PO SCH (10:51)
[2022-05-18 21:51] VITALS: RESP 20
[2022-05-18] MEDS: D5-1/2NS+10 MEQ KCL - 10 MEQ/1,000 ML INFUS.BAG IV SCH (22:59)
[2022-05-19] MEDS: D5-1/2NS+10 MEQ KCL - 10 MEQ/1,000 ML INFUS.BAG IV SCH ×2 (10:31→22:39)
[2022-05-19] MEDS: ESCITALOPRAM OXALATE 10 MG TABLET PO SCH (10:32)
[2022-05-19] MEDS: HEPARIN NA (PORCINE) 5,000 UNITS/ML 1ML VIAL SQ SCH ×2 (10:34→22:32)
[2022-05-19] MEDS: ASPIRIN 81 MG CHEWABLE TABLETS PO SCH (10:34)
[2022-05-19] MEDS: metroNIDAZOLE 250 MG TABLET PO SCH ×2 (10:34→22:32)
[2022-05-19] MEDS: CEFTRIAXONE 1 GM in DEXTROSE 5%-WATER - 50 ML IVPB SCH (10:35)
[2022-05-19] MEDS: COLLAGENASE CLOSTRIDIUM HIST. 30 GRAMS TUBE TP SCH (10:35)
[2022-05-19] MEDS: LOSARTAN POTASSIUM 50 MG TABLET PO SCH (10:35)
[2022-05-19] MEDS: amLODIPine BESYLATE 10 MG TABLET (FP) PO SCH (10:35)
[2022-05-20] MEDS: ASPIRIN 81 MG CHEWABLE TABLETS PO SCH (10:35)
[2022-05-20] MEDS: ESCITALOPRAM OXALATE 10 MG TABLET PO SCH (10:35)
[2022-05-20] MEDS: LOSARTAN POTASSIUM 50 MG TABLET PO SCH (10:35)
[2022-05-20] MEDS: amLODIPine BESYLATE 10 MG TABLET (FP) PO SCH (10:35)
[2022-05-20] MEDS: HEPARIN NA (PORCINE) 5,000 UNITS/ML 1ML VIAL SQ SCH (10:36)
[2022-05-20] MEDS: COLLAGENASE CLOSTRIDIUM HIST. 30 GRAMS TUBE TP SCH (10:37)
[2022-05-20] MEDS: metroNIDAZOLE 250 MG TABLET PO SCH (10:37)
[2022-05-20] MEDS: CEFTRIAXONE 1 GM in DEXTROSE 5%-WATER - 50 ML IVPB SCH (10:37)
[2022-05-20 11:25] LABS: CALCIUM 10.1 mg/dL (8.5-10.1)
[2022-05-20 11:28] LABS: ALBUMIN 2.5 g/dl (3.4-5.0)
[2022-05-20 11:30] LABS: BILIRUBIN,TOTAL 0.3 mg/dL (0.2-1); TOT PROT 7.4 g/dl (6.4-8.2)
[2022-05-20 11:31] LABS: CREATININE 0.5 mg/dL (0.55-1.3)
[2022-05-20 11:36] LABS: BLOOD UREA NITROGEN 7.3 mg/dL (7-18)
[2022-05-20 15:30] VITALS: BP 136/72; PULSE 73; TEMP 97.4
== END 2022-05-20 17:23 | disposition home health service (06) | DRG 603 ==
LOC: JER 15:27 → JERBED 21:09 → J8W 05-16 21:35
PROVIDERS: ADMIT Internal Medicine; ATTEND Family Medicine
DX: L03.115 Cellulitis of right lower limb (principal); L97.901 Non-pressure chronic ulcer of unspecified part of unspecified lower leg limited to breakdown of skin; L97.902 Non-pressure chronic ulcer of unspecified part of unspecified lower leg with fat layer exposed; F11.20 Opioid dependence, uncomplicated; E87.3 Alkalosis; I83.029 Varicose veins of left lower extremity with ulcer of unspecified site; L03.116 Cellulitis of left lower limb; I83.019 Varicose veins of right lower extremity with ulcer of unspecified site; F17.210 Nicotine dependence, cigarettes, uncomplicated; E16.2 Hypoglycemia, unspecified; E87.5 Hyperkalemia; Z88.0 Allergy status to penicillin
CPT/HCPCS: 11042; 36415; 73590-TC-LT-FY; 73590-TC-RT-FY; 80048; 80053; 83540; 83550; 85025; 85027; 87040; 87070; 87205; 93005; 93010; 99285-25; A6197; C9803-CS; J1644; U0003; U0005

== ENCOUNTER 2022-11-08 14:59 | Inpatient (IN) | payer OTHER ==
[2022-11-08] MEDS ORDERED: CEFEPIME HCL/D5W 2 GM/50 ML BAG IVPB ONE (15:34)
[2022-11-08] MEDS ORDERED: VANCOMYCIN 1 GM in D5W (PRE-DOCKED) 1,000 MG/250 ML (RESTRICTED TO ID ONLY IVPB ONE (15:34)
[2022-11-08] MEDS ORDERED: VANCOMYCIN/WATER FOR INJ (PEG) 1,000 MG/200 ML BAG IVPB ONE (16:04)
[2022-11-08] MEDS ORDERED: CEFEPIME 2 GM/100 ML BAG IVPB ONE (16:05)
[2022-11-08 16:50] LABS: BASO % 0.5 % (0-2.0); EOS % 0.2 % (0-4.5); HEMATOCRIT 34.2 % (32.4-45.2); HEMOGLOBIN 11.1 GM/dL (10.7-15.3); LYMPH % 31.2 % (8-40); MCH 30.3 pg (25.7-33.7); MCHC 32.5 g/dl (32.0-36.0); MEAN CELL VOLUME 93.1 fl (80-96); MEAN PLT VOLUME 9.8 fl (7.5-11.1); MONO % 11.6 % (3.8-10.2); NEUT % 56.5 % (42.8-82.8); PLATELET COUNT 183 10^3/uL (134-434); RBC 3.67 M/mm3 (3.60-5.2); WHITE BLOOD COUNT 4.1 K/mm3 (4.0-10.0)
[2022-11-08 17:09] LABS: POTASSIUM 3.6 mmol/L (3.5-5.1)
[2022-11-08 17:11] LABS: CALCIUM 9.6 mg/dL (8.5-10.1)
[2022-11-08 17:12] LABS: ALBUMIN 2.7 g/dl (3.4-5.0); BLOOD UREA NITROGEN 14.8 mg/dL (7-18)
[2022-11-08 17:15] LABS: CREATININE 0.7 mg/dL (0.55-1.3)
[2022-11-08 17:17] LABS: TOT PROT 8.1 g/dl (6.4-8.2)
[2022-11-08 17:40] LABS: ERYTHROCYTE SEDIMENTATION RATE 83 mm/hr (0-30)
[2022-11-09] MEDS: VANCOMYCIN/WATER FOR INJ (PEG) 1,000 MG/200 ML BAG IVPB SCH ×2 (06:56→18:07)
[2022-11-09 08:33] LABS: BASO % 0.4 % (0-2.0); EOS % 0.4 % (0-4.5); HEMATOCRIT 29.3 % (32.4-45.2); HEMOGLOBIN 9.7 GM/dL (10.7-15.3); LYMPH % 36.3 % (8-40); MCH 30.9 pg (25.7-33.7); MEAN CELL VOLUME 93.5 fl (80-96); MEAN PLT VOLUME 9.3 fl (7.5-11.1); MONO % 13.1 % (3.8-10.2); NEUT % 49.8 % (42.8-82.8); PLATELET COUNT 143 10^3/uL (134-434); RBC 3.14 M/mm3 (3.60-5.2); RDW 13.7 % (11.6-15.6); WHITE BLOOD COUNT 4.7 K/mm3 (4.0-10.0)
[2022-11-09 09:12] LABS: CHLORIDE 107 mmol/L (98-107); POTASSIUM 3.8 mmol/L (3.5-5.1); SODIUM 143 mmol/L (136-145)
[2022-11-09 09:20] LABS: ANION GAP 1 MMOL/L (8-16); CALCIUM 9.1 mg/dL (8.5-10.1); CO2 34 mmol/L (21-32)
[2022-11-09 09:21] LABS: BLOOD UREA NITROGEN 10.6 mg/dL (7-18)
[2022-11-09 09:24] LABS: CREATININE 0.6 mg/dL (0.55-1.3)
[2022-11-09 09:36] LABS: GLUCOSE,RANDOM 48 mg/dL (74-106)
[2022-11-09] MEDS: LOSARTAN POTASSIUM 50 MG TABLET PO SCH (11:02)
[2022-11-09] MEDS: amLODIPine BESYLATE 5 MG TABLET (FP) PO SCH (11:08)
[2022-11-09] MEDS: ASPIRIN COATED 81 MG TABLET.EC PO SCH (11:08)
[2022-11-09 15:07] VITALS: BMI 20.3
[2022-11-10] MEDS ORDERED: DEXTROSE 50%-WATER 25 GM/50 ML DISP.SYRIN ONE (06:05)
[2022-11-10] MEDS ORDERED: DEXTROSE 50%-WATER 25 GM/50 ML DISP.SYRIN IVPUSH PRN (06:35)
[2022-11-10] MEDS: LOSARTAN POTASSIUM 50 MG TABLET PO SCH (09:56)
[2022-11-10] MEDS: amLODIPine BESYLATE 5 MG TABLET (FP) PO SCH (09:56)
[2022-11-10] MEDS: ASPIRIN COATED 81 MG TABLET.EC PO SCH (09:56)
[2022-11-10] MEDS: COLLAGENASE CLOSTRIDIUM HIST. 30 GRAMS TUBE TP SCH (15:12)
[2022-11-10] MEDS: VANCOMYCIN 1,000 MG in DEXTROSE 5%-WATER - 250 ML IVPB SCH ×2 (18:01→18:02)
[2022-11-10] MEDS: CEFEPIME 1 GM in DEXTROSE 5%-WATER 100 ML IVPB SCH (18:09)
[2022-11-10] MEDS: VANCOMYCIN/WATER 1250 MG 1,250 MG/250 ML BAG IVPB SCH (18:53)
[2022-11-11] MEDS: CEFEPIME 1 GM in DEXTROSE 5%-WATER 100 ML IVPB SCH ×3 (02:41→17:32)
[2022-11-11] MEDS: VANCOMYCIN/WATER 1250 MG 1,250 MG/250 ML BAG IVPB SCH ×2 (05:57→18:11)
[2022-11-11] MEDS ORDERED: CEFEPIME HCL 1 GM VIAL (RESTRICTED TO ID) ONE (09:50)
[2022-11-11] MEDS: amLODIPine BESYLATE 5 MG TABLET (FP) PO SCH (09:55)
[2022-11-11] MEDS: LOSARTAN POTASSIUM 50 MG TABLET PO SCH (09:55)
[2022-11-11] MEDS: ASPIRIN COATED 81 MG TABLET.EC PO SCH (09:55)
[2022-11-11] MEDS: COLLAGENASE CLOSTRIDIUM HIST. 30 GRAMS TUBE TP SCH (11:43)
[2022-11-12] MEDS: CEFEPIME 1 GM in DEXTROSE 5%-WATER 100 ML IVPB SCH ×3 (01:54→17:21)
[2022-11-12] MEDS: VANCOMYCIN/WATER 1250 MG 1,250 MG/250 ML BAG IVPB SCH ×2 (06:15→18:27)
[2022-11-12 08:40] LABS: HEMATOCRIT 32.5 % (32.4-45.2); HEMOGLOBIN 10.6 GM/dL (10.7-15.3); MCH 30.3 pg (25.7-33.7); MCHC 32.5 g/dl (32.0-36.0); MEAN CELL VOLUME 93.1 fl (80-96); MEAN PLT VOLUME 9.1 fl (7.5-11.1); PLATELET COUNT 161 10^3/uL (134-434); RBC 3.49 M/mm3 (3.60-5.2); RDW 14.4 % (11.6-15.6); WHITE BLOOD COUNT 4.9 K/mm3 (4.0-10.0)
[2022-11-12 08:51] LABS: POTASSIUM 4.8 mmol/L (3.5-5.1)
[2022-11-12 08:54] LABS: CALCIUM 9.3 mg/dL (8.5-10.1)
[2022-11-12 08:55] LABS: ALBUMIN 2.2 g/dl (3.4-5.0); BLOOD UREA NITROGEN 16.7 mg/dL (7-18)
[2022-11-12 08:59] LABS: BILIRUBIN,TOTAL 0.4 mg/dL (0.2-1); CREATININE 0.6 mg/dL (0.55-1.3)
[2022-11-12 09:00] LABS: TOT PROT 6.9 g/dl (6.4-8.2)
[2022-11-12] MEDS: amLODIPine BESYLATE 5 MG TABLET (FP) PO SCH (10:36)
[2022-11-12] MEDS: LOSARTAN POTASSIUM 50 MG TABLET PO SCH (10:36)
[2022-11-12] MEDS: ASPIRIN COATED 81 MG TABLET.EC PO SCH (10:36)
[2022-11-12] MEDS: COLLAGENASE CLOSTRIDIUM HIST. 30 GRAMS TUBE TP SCH (17:16)
[2022-11-13] MEDS: CEFEPIME 1 GM in DEXTROSE 5%-WATER 100 ML IVPB SCH ×3 (03:11→17:29)
[2022-11-13] MEDS ORDERED: DEXTROSE 50%-WATER 25 GM/50 ML DISP.SYRIN ONE (07:52)
[2022-11-13] MEDS: VANCOMYCIN/WATER 1250 MG 1,250 MG/250 ML BAG IVPB SCH ×2 (07:56→17:30)
[2022-11-13] MEDS: LOSARTAN POTASSIUM 50 MG TABLET PO SCH (09:35)
[2022-11-13] MEDS: ASPIRIN COATED 81 MG TABLET.EC PO SCH (09:36)
[2022-11-13] MEDS: amLODIPine BESYLATE 5 MG TABLET (FP) PO SCH (09:36)
[2022-11-13] MEDS: COLLAGENASE CLOSTRIDIUM HIST. 30 GRAMS TUBE TP SCH (09:37)
[2022-11-13 14:57] VITALS: RESP 18
[2022-11-14] MEDS: CEFEPIME 1 GM in DEXTROSE 5%-WATER 100 ML IVPB SCH ×3 (02:15→17:15)
[2022-11-14] MEDS: VANCOMYCIN/WATER 1250 MG 1,250 MG/250 ML BAG IVPB SCH (06:13)
[2022-11-14] MEDS: ASPIRIN COATED 81 MG TABLET.EC PO SCH (09:35)
[2022-11-14] MEDS: LOSARTAN POTASSIUM 50 MG TABLET PO SCH (09:36)
[2022-11-14] MEDS: amLODIPine BESYLATE 5 MG TABLET (FP) PO SCH (09:40)
[2022-11-14] MEDS: COLLAGENASE CLOSTRIDIUM HIST. 30 GRAMS TUBE TP SCH (11:18)
[2022-11-15] MEDS: CEFEPIME 1 GM in DEXTROSE 5%-WATER 100 ML IVPB SCH ×2 (02:03→09:59)
[2022-11-15 09:35] LABS: HEMATOCRIT 35.2 % (32.4-45.2); HEMOGLOBIN 11.5 GM/dL (10.7-15.3); MCH 30.3 pg (25.7-33.7); MCHC 32.6 g/dl (32.0-36.0); MEAN CELL VOLUME 93.1 fl (80-96); MEAN PLT VOLUME 9.1 fl (7.5-11.1); PLATELET COUNT 209 10^3/uL (134-434); RBC 3.78 M/mm3 (3.60-5.2); RDW 14.1 % (11.6-15.6); WHITE BLOOD COUNT 4.4 K/mm3 (4.0-10.0)
[2022-11-15 09:46] LABS: POTASSIUM 4.3 mmol/L (3.5-5.1)
[2022-11-15 09:48] LABS: BLOOD UREA NITROGEN 15.6 mg/dL (7-18); CALCIUM 10.1 mg/dL (8.5-10.1)
[2022-11-15 09:53] LABS: BILIRUBIN,TOTAL 0.5 mg/dL (0.2-1); CREATININE 0.6 mg/dL (0.55-1.3); TOT PROT 7.8 g/dl (6.4-8.2)
[2022-11-15 09:56] LABS: ALBUMIN 2.7 g/dl (3.4-5.0)
[2022-11-15] MEDS ORDERED: MULTIVIT-MINERALS ORAL LIQUID PO SCH (10:00)
[2022-11-15] MEDS: LOSARTAN POTASSIUM 50 MG TABLET PO SCH (10:01)
[2022-11-15] MEDS: ASPIRIN COATED 81 MG TABLET.EC PO SCH (10:01)
[2022-11-15] MEDS: amLODIPine BESYLATE 5 MG TABLET (FP) PO SCH (10:02)
[2022-11-15] MEDS: COLLAGENASE CLOSTRIDIUM HIST. 30 GRAMS TUBE TP SCH (11:10)
[2022-11-15 15:03] VITALS: BP 125/69; PULSE 63; TEMP 98.1
== END 2022-11-15 16:27 | disposition home or self-care (01) | DRG 593 ==
LOC: JER 14:59 → JERBED 15:50 → J8W 22:28
PROVIDERS: ADMIT Internal Medicine; ATTEND Family Medicine
DX: L97.828 Non-pressure chronic ulcer of other part of left lower leg with other specified severity (principal); I83.215 Varicose veins of right lower extremity with both ulcer other part of foot and inflammation; L03.115 Cellulitis of right lower limb; I83.225 Varicose veins of left lower extremity with both ulcer other part of foot and inflammation; L03.116 Cellulitis of left lower limb; L97.818 Non-pressure chronic ulcer of other part of right lower leg with other specified severity; I10 Essential (primary) hypertension; I73.9 Peripheral vascular disease, unspecified; F10.20 Alcohol dependence, uncomplicated; R13.10 Dysphagia, unspecified; R26.81 Unsteadiness on feet; F32.89 Other specified depressive episodes; I87.8 Other specified disorders of veins; L97.518 Non-pressure chronic ulcer of other part of right foot with other specified severity; L97.528 Non-pressure chronic ulcer of other part of left foot with other specified severity; I69.391 Dysphagia following cerebral infarction; B96.4 Proteus (mirabilis) (morganii) as the cause of diseases classified elsewhere; B95.2 Enterococcus as the cause of diseases classified elsewhere; B96.5 Pseudomonas (aeruginosa) (mallei) (pseudomallei) as the cause of diseases classified elsewhere; B96.20 Unspecified Escherichia coli [E. coli] as the cause of diseases classified elsewhere; Z88.0 Allergy status to penicillin
CPT/HCPCS: 36415; 71045-TC-FY; 73590-TC-LT-FY; 73590-TC-RT-FY; 73610-TC-LT-FY; 73610-TC-RT-FY; 74230-TC-FY; 80048; 80053; 82533; 82947; 82962; 83036; 83525; 85025; 85027; 85651; 86140; 87040; 87070; 87076; 87186; 87205; 87635; 92611-GN; 93005; 93010; 97116-GP; 97162-GP; 97602; 99285-25; G0480

== ENCOUNTER 2023-02-10 22:59 | Inpatient (IN) | payer OTHER ==
[2023-02-11 00:29] LABS: BASO % 0.1 % (0-2.0); HEMATOCRIT 38.9 % (32.4-45.2); LYMPH % 5.4 % (8-40); MCH 30.6 pg (25.7-33.7); MCHC 33.3 g/dl (32.0-36.0); MEAN CELL VOLUME 91.9 fl (80-96); MEAN PLT VOLUME 8.1 fl (7.5-11.1); MONO % 8.1 % (3.8-10.2); NEUT % 86.4 % (42.8-82.8); PLATELET COUNT 355 10^3/uL (134-434); RBC 4.23 M/mm3 (3.60-5.2); RDW 13.6 % (11.6-15.6); WHITE BLOOD COUNT 9.5 K/mm3 (4.0-10.0)
[2023-02-11 00:42] LABS: MAGNESIUM 1.9 mg/dL (1.8-2.4)
[2023-02-11 00:46] LABS: POTASSIUM 3.4 mmol/L (3.5-5.1)
[2023-02-11 00:48] LABS: CALCIUM 10.3 mg/dL (8.5-10.1)
[2023-02-11 00:49] LABS: ALBUMIN 2.4 g/dl (3.4-5.0)
[2023-02-11 00:52] LABS: ACTIVATED PTT 27.1 SECONDS (25.2-36.5); CREATININE 0.8 mg/dL (0.55-1.3); INR 1.25 (0.83-1.09); PROTHROMBIN TIME (PATIENT) 14.5 SEC (9.7-13.0)
[2023-02-11 00:53] LABS: TOT PROT 8.3 g/dl (6.4-8.2)
[2023-02-11 00:54] LABS: BILIRUBIN,TOTAL 0.7 mg/dL (0.2-1)
[2023-02-11 00:57] LABS: N-TERMINAL BNP 1728.8 pg/ml (5-125)
[2023-02-11] MEDS ORDERED: DEXAMETHASONE SOD PHOSPHATE 10 MG/1 ML VIAL IVPUSH ONE (02:02)
[2023-02-11] MEDS ORDERED: CEFTRIAXONE 1 GM in DEXTROSE 5%-WATER - 100 ML IVPB ONE ×2 (02:02→02:47)
[2023-02-11] MEDS ORDERED: AZITHROMYCIN IVPB 500 MG in DEXTROSE 5%-WATER - 250 ML IVPB ONE (02:02)
[2023-02-11] MEDS ORDERED: DEXAMETHASONE SOD PHOSPHATE 10 MG/1 ML VIAL ONE ×2 (03:00→09:05)
[2023-02-11] MEDS ORDERED: AZITHROMYCIN IVPB 500 MG/250 ML BAG IVPB ONE (03:00)
[2023-02-11] MEDS ORDERED: CEFTRIAXONE 1 GM/50 ML BAG ONE (03:00)
[2023-02-11 03:03] LABS: POTASSIUM 3.7 mmol/L (3.5-5.1)
[2023-02-11 03:04] LABS: CALCIUM 9.7 mg/dL (8.5-10.1)
[2023-02-11 03:05] LABS: BLOOD UREA NITROGEN 46.7 mg/dL (7-18)
[2023-02-11 03:08] LABS: CREATININE 0.8 mg/dL (0.55-1.3)
[2023-02-11] MEDS ORDERED: SODIUM CHLORIDE 0.9% 500 ML INFUS.BAG IV ONE (03:26)
[2023-02-11] MEDS ORDERED: ACETAMINOPHEN 325 MG TABLET (FP) PO PRN (04:23)
[2023-02-11] MEDS ORDERED: DOCUSATE SODIUM 100 MG CAPSULE (FP) PO PRN (04:23)
[2023-02-11] MEDS ORDERED: ALBUTEROL SO4 2.5/IPRATROPIUM 0.5 INH SOL 3 ML VIAL.NEB. NEB PRN (04:27)
[2023-02-11] MEDS ORDERED: guaiFENesin/D-METHORPHAN TAB.ER.12H PO SCH (04:30)
[2023-02-11] MEDS ORDERED: ASPIRIN 300 MG SUPP.RECT RC ONE ×2 (06:52→06:53)
[2023-02-11] MEDS ORDERED: REMDESIVIR 200 MG in SODIUM CHLORIDE 250 ML IVPB ONE (07:00)
[2023-02-11] MEDS ORDERED: ACETAMINOPHEN 1000 MG/100 ML BAG IVPB PRN (07:11)
[2023-02-11 07:17] LABS: HEMATOCRIT 37.7 % (32.4-45.2); MCH 30.1 pg (25.7-33.7); MCHC 31.9 g/dl (32.0-36.0); MEAN CELL VOLUME 94.5 fl (80-96); MEAN PLT VOLUME 8.4 fl (7.5-11.1); PLATELET COUNT 304 10^3/uL (134-434); RBC 3.99 M/mm3 (3.60-5.2); RDW 13.9 % (11.6-15.6); WHITE BLOOD COUNT 10.6 K/mm3 (4.0-10.0)
[2023-02-11 09:11] LABS: ANISOCYTOSIS 0; MACROCYTOSIS 1+
[2023-02-11] MEDS ORDERED: ENOXAPARIN NA (PORCINE) 40 MG/0.4 ML DISP.SYRIN SQ SCH (10:00)
[2023-02-11] MEDS ORDERED: D5-1/2NS+20 MEQ KCL - 20 MEQ/1,000 ML INFUS.BAG IV SCH (13:15)
[2023-02-11] MEDS: ASPIRIN 81 MG CHEWABLE TABLETS PO SCH (21:39)
[2023-02-11] MEDS: ATORVASTATIN CA 40 MG TABLET (FP) PO SCH (21:39)
[2023-02-11] MEDS ORDERED: METOPROLOL TARTRATE 5 MG/5 ML VIAL IVPUSH ONE (22:00)
[2023-02-12 08:29] LABS: HEMATOCRIT 34.8 % (32.4-45.2); HEMOGLOBIN 10.9 GM/dL (10.7-15.3); MCH 29.8 pg (25.7-33.7); MCHC 31.3 g/dl (32.0-36.0); MEAN CELL VOLUME 95.1 fl (80-96); MEAN PLT VOLUME 8.4 fl (7.5-11.1); PLATELET COUNT 298 10^3/uL (134-434); RBC 3.66 M/mm3 (3.60-5.2); RDW 13.8 % (11.6-15.6)
[2023-02-12 08:50] LABS: POTASSIUM 3.5 mmol/L (3.5-5.1)
[2023-02-12 08:56] LABS: CALCIUM 9.7 mg/dL (8.5-10.1)
[2023-02-12 08:57] LABS: BLOOD UREA NITROGEN 58.1 mg/dL (7-18)
[2023-02-12 09:00] LABS: CREATININE 0.7 mg/dL (0.55-1.3); PHOSPHOROUS 2.7 mg/dL (2.5-4.9)
[2023-02-12] MEDS ORDERED: DEXTROSE 5%-WATER - 1,000 ML with POTASSIUM CHLORIDE 20 MEQ IV SCH (10:30)
[2023-02-12] MEDS: CEFTRIAXONE 1 GM in DEXTROSE 5%-WATER - 50 ML IVPB SCH (10:45)
[2023-02-12] MEDS: AZITHROMYCIN IVPB 500 MG/250 ML BAG IVPB SCH (10:47)
[2023-02-12] MEDS: ASPIRIN 81 MG CHEWABLE TABLETS PO SCH (10:47)
[2023-02-12] MEDS: DEXAMETHASONE SOD PHOSPHATE 10 MG/1 ML VIAL IVPUSH SCH (10:48)
[2023-02-12] MEDS: DEXTROSE 5%-WATER - 1,000 ML with POTASSIUM CHLORIDE 20 MEQ IV SCH ×2 (11:55→23:45)
[2023-02-12] MEDS: REMDESIVIR 100 MG in SODIUM CHLORIDE 250 ML IVPB SCH (15:24)
[2023-02-12] MEDS: ATORVASTATIN CA 40 MG TABLET (FP) PO SCH (21:25)
[2023-02-13 08:31] LABS: POTASSIUM 3.9 mmol/L (3.5-5.1)
[2023-02-13 08:32] LABS: CALCIUM 9.5 mg/dL (8.5-10.1)
[2023-02-13 08:33] LABS: ALBUMIN 2.1 g/dl (3.4-5.0); BLOOD UREA NITROGEN 52.1 mg/dL (7-18)
[2023-02-13 08:36] LABS: CREATININE 0.6 mg/dL (0.55-1.3)
[2023-02-13 08:38] LABS: BILIRUBIN,TOTAL 0.2 mg/dL (0.2-1); TOT PROT 7.1 g/dl (6.4-8.2)
[2023-02-13] MEDS: DEXTROSE 5%-WATER - 1,000 ML with POTASSIUM CHLORIDE 20 MEQ IV SCH ×2 (09:09→13:11)
[2023-02-13] MEDS: ASPIRIN 81 MG CHEWABLE TABLETS PO SCH (10:19)
[2023-02-13] MEDS: DEXAMETHASONE SOD PHOSPHATE 10 MG/1 ML VIAL IVPUSH SCH (10:20)
[2023-02-13] MEDS: CEFTRIAXONE 1 GM in DEXTROSE 5%-WATER - 50 ML IVPB SCH (10:21)
[2023-02-13] MEDS: AZITHROMYCIN IVPB 500 MG/250 ML BAG IVPB SCH (10:21)
[2023-02-13] MEDS ORDERED: methaDONE HCL 10 MG TABLET NGT SCH (11:45)
[2023-02-13] MEDS ORDERED: METOPROLOL TARTRATE 5 MG/5 ML VIAL ONE (12:32)
[2023-02-13] MEDS ORDERED: METOPROLOL TARTRATE 5 MG/5 ML VIAL IVPUSH ONE (13:15)
[2023-02-13] MEDS ORDERED: METOPROLOL TARTRATE 5 MG/5 ML VIAL IVPUSH PRN (13:24)
[2023-02-13] MEDS ORDERED: METOPROLOL TARTRATE 25 MG TABLET (FP) NGT SCH ×2 (13:30→14:33)
[2023-02-13] MEDS ORDERED: ALBUTEROL SO4 2.5/IPRATROPIUM 0.5 INH SOL 3 ML VIAL.NEB. NEB PRN (14:25)
[2023-02-13] MEDS: REMDESIVIR 100 MG in SODIUM CHLORIDE 250 ML IVPB SCH (16:36)
[2023-02-13] MEDS: METOPROLOL TARTRATE 25 MG TABLET (FP) NGT SCH ×2 (19:04→23:18)
[2023-02-13] MEDS: ATORVASTATIN CA 40 MG TABLET (FP) PO SCH (23:18)
[2023-02-14] MEDS: methaDONE HCL 40 MG DISPERSABLE TABLET PO SCH ×2 (06:17→08:00)
[2023-02-14] MEDS ORDERED: SODIUM CHLORIDE 1,000 ML IV SCH (09:00)
[2023-02-14] MEDS ORDERED: METOPROLOL TARTRATE 5 MG/5 ML VIAL IVPUSH PRN ×3 (09:06→19:48)
[2023-02-14] MEDS: ASPIRIN 81 MG CHEWABLE TABLETS PO SCH (09:29)
[2023-02-14] MEDS: METOPROLOL TARTRATE 25 MG TABLET (FP) NGT SCH (09:30)
[2023-02-14] MEDS: AZITHROMYCIN IVPB 500 MG/250 ML BAG IVPB SCH (09:33)
[2023-02-14] MEDS ORDERED: PANTOPRAZOLE SODIUM 160 MG in SODIUM CHLORIDE 250 ML IVPB SCH (10:00)
[2023-02-14] MEDS ORDERED: DEXAMETHASONE SOD PHOSPHATE 4 MG/1 ML VIAL IVPUSH SCH (10:00)
[2023-02-14 10:13] LABS: HEMATOCRIT 32.2 % (32.4-45.2); HEMOGLOBIN 10.5 GM/dL (10.7-15.3); LYMPH % 7.9 % (8-40); MCH 30.4 pg (25.7-33.7); MCHC 32.5 g/dl (32.0-36.0); MEAN CELL VOLUME 93.5 fl (80-96); MEAN PLT VOLUME 8.2 fl (7.5-11.1); MONO % 7.4 % (3.8-10.2); NEUT % 84.7 % (42.8-82.8); PLATELET COUNT 224 10^3/uL (134-434); RBC 3.45 M/mm3 (3.60-5.2); RDW 13.7 % (11.6-15.6); WHITE BLOOD COUNT 9.2 K/mm3 (4.0-10.0)
[2023-02-14 10:32] LABS: INR 1.44 (0.83-1.09); PROTHROMBIN TIME (PATIENT) 16.7 SEC (9.7-13.0)
[2023-02-14 10:33] LABS: POTASSIUM 4.3 mmol/L (3.5-5.1)
[2023-02-14 10:35] LABS: ACTIVATED PTT 27.9 SECONDS (25.2-36.5); CALCIUM 9.5 mg/dL (8.5-10.1)
[2023-02-14 10:36] LABS: ALBUMIN 2.1 g/dl (3.4-5.0); BLOOD UREA NITROGEN 51.2 mg/dL (7-18)
[2023-02-14 10:39] LABS: CREATININE 0.7 mg/dL (0.55-1.3)
[2023-02-14 10:40] LABS: BILIRUBIN,TOTAL 0.4 mg/dL (0.2-1); TOT PROT 6.8 g/dl (6.4-8.2)
[2023-02-14] MEDS: CEFTRIAXONE 1 GM in DEXTROSE 5%-WATER - 50 ML IVPB SCH (10:40)
[2023-02-14] MEDS ORDERED: PANTOPRAZOLE SODIUM 40 MG VIAL IVPB ONE (11:15)
[2023-02-14] MEDS: DEXTROSE 5%-WATER - 1,000 ML with POTASSIUM CHLORIDE 20 MEQ IV SCH (11:43)
[2023-02-14] MEDS ORDERED: SODIUM CHLORIDE 500 ML IV STA ×2 (13:21→17:47)
[2023-02-14] MEDS ORDERED: DEXTROSE 5%-WATER - 1,000 ML IV SCH (13:30)
[2023-02-14 14:24] LABS: ARTERIAL BLD GAS O2 SATURATION 98.5 % (95-98); ARTERIAL BLOOD GAS BASE EXCESS 6.7 mmol/L (-2-2); ARTERIAL BLOOD GAS PO2 119.4 mmHg (80-100); ARTERIAL BLOOD GAS pH 7.452 (7.350-7.450)
[2023-02-14 14:28] LABS: ALLENS TEST POSITIVE
[2023-02-14] MEDS: REMDESIVIR 100 MG in SODIUM CHLORIDE 250 ML IVPB SCH (16:28)
[2023-02-14] MEDS ORDERED: SODIUM CHLORIDE 1,000 ML IV STA (16:59)
[2023-02-14 18:36] LABS: HEMATOCRIT 22.6 % (32.4-45.2); HEMOGLOBIN 7.1 GM/dL (10.7-15.3); MCH 29.9 pg (25.7-33.7); MCHC 31.6 g/dl (32.0-36.0); MEAN CELL VOLUME 94.6 fl (80-96); MEAN PLT VOLUME 9.4 fl (7.5-11.1); PLATELET COUNT 202 10^3/uL (134-434); RBC 2.38 M/mm3 (3.60-5.2); RDW 13.8 % (11.6-15.6)
[2023-02-14] MEDS ORDERED: ALBUTEROL SO4 2.5/IPRATROPIUM 0.5 INH SOL 3 ML VIAL.NEB. NEB PRN (19:48)
[2023-02-14 20:11] LABS: ANISOCYTOSIS 1+; MACROCYTOSIS 0; TARGET CELLS 1+
[2023-02-14] MEDS: SODIUM CHLORIDE 1,000 ML IV SCH (21:34)
[2023-02-14] MEDS: ATORVASTATIN CA 40 MG TABLET (FP) PO SCH (21:35)
[2023-02-14] MEDS: CHLORHEXIDINE GLUCONATE 4% CLEANSER FOR DECOLONIZATION TP SCH (21:35)
[2023-02-14] MEDS ORDERED: METOPROLOL TARTRATE 25 MG TABLET (FP) NGT SCH (22:00)
[2023-02-14] MEDS: MUPIROCIN 2% TOPICAL OINTMENT FOR DECOLONIZATION NS SCH (22:00)
[2023-02-14 22:04] LABS: HEMATOCRIT 25.4 % (32.4-45.2); HEMOGLOBIN 8.4 GM/dL (10.7-15.3); MCH 30.7 pg (25.7-33.7); MCHC 33.1 g/dl (32.0-36.0); MEAN CELL VOLUME 92.9 fl (80-96); MEAN PLT VOLUME 8.6 fl (7.5-11.1); PLATELET COUNT 169 10^3/uL (134-434); RBC 2.73 M/mm3 (3.60-5.2); RDW 13.8 % (11.6-15.6); WHITE BLOOD COUNT 9.8 K/mm3 (4.0-10.0)
[2023-02-15] MEDS ORDERED: methaDONE HCL 40 MG DISPERSABLE TABLET NGT STA (01:20)
[2023-02-15] MEDS: methaDONE HCL 40 MG DISPERSABLE TABLET PO SCH (05:56)
[2023-02-15] MEDS ORDERED: PANTOPRAZOLE SODIUM 160 MG in SODIUM CHLORIDE 250 ML IVPB SCH (06:00)
[2023-02-15] MEDS: CEFTRIAXONE 1 GM in DEXTROSE 5%-WATER - 50 ML IVPB SCH (09:31)
[2023-02-15] MEDS: DEXAMETHASONE SOD PHOSPHATE 4 MG/1 ML VIAL IVPUSH SCH (09:33)
[2023-02-15] MEDS: MUPIROCIN 2% TOPICAL OINTMENT FOR DECOLONIZATION NS SCH ×2 (09:33→22:03)
[2023-02-15] MEDS: SODIUM CHLORIDE 1,000 ML IV SCH (09:57)
[2023-02-15] MEDS ORDERED: AZITHROMYCIN IVPB 500 MG/250 ML BAG IVPB SCH (10:00)
[2023-02-15 11:59] LABS: HEMATOCRIT 21.5 % (32.4-45.2); MCHC 31.1 g/dl (32.0-36.0); MEAN CELL VOLUME 96.5 fl (80-96); MEAN PLT VOLUME 9.1 fl (7.5-11.1); PLATELET COUNT 148 10^3/uL (134-434); RBC 2.23 M/mm3 (3.60-5.2); RDW 13.8 % (11.6-15.6); WHITE BLOOD COUNT 8.9 K/mm3 (4.0-10.0)
[2023-02-15 12:04] LABS: HEMOGLOBIN 6.7 GM/dL (10.7-15.3)
[2023-02-15 12:12] LABS: POTASSIUM 4.6 mmol/L (3.5-5.1)
[2023-02-15 12:15] LABS: BLOOD UREA NITROGEN 64.5 mg/dL (7-18); CALCIUM 8.3 mg/dL (8.5-10.1); MAGNESIUM 1.7 mg/dL (1.8-2.4)
[2023-02-15 12:18] LABS: CREATININE 0.6 mg/dL (0.55-1.3)
[2023-02-15 12:19] LABS: PHOSPHOROUS 3.4 mg/dL (2.5-4.9)
[2023-02-15] MEDS ORDERED: REMDESIVIR 100 MG in SODIUM CHLORIDE 250 ML IVPB SCH (15:00)
[2023-02-15] MEDS: PANTOPRAZOLE SODIUM 40 MG VIAL IVPUSH SCH (21:15)
[2023-02-15] MEDS: ATORVASTATIN CA 40 MG TABLET (FP) PO SCH (21:15)
[2023-02-15 22:03] LABS: HEMATOCRIT 30.5 % (32.4-45.2); HEMOGLOBIN 9.7 GM/dL (10.7-15.3); MCH 30.1 pg (25.7-33.7); MCHC 31.8 g/dl (32.0-36.0); MEAN CELL VOLUME 94.8 fl (80-96); MEAN PLT VOLUME 9.6 fl (7.5-11.1); PLATELET COUNT 161 10^3/uL (134-434); RBC 3.22 M/mm3 (3.60-5.2); RDW 14.5 % (11.6-15.6); WHITE BLOOD COUNT 12.4 K/mm3 (4.0-10.0)
[2023-02-15] MEDS: CHLORHEXIDINE GLUCONATE 4% CLEANSER FOR DECOLONIZATION TP SCH (22:04)
[2023-02-16] MEDS: methaDONE HCL 40 MG DISPERSABLE TABLET PO SCH (06:13)
[2023-02-16] MEDS: PANTOPRAZOLE SODIUM 40 MG VIAL IVPUSH SCH ×2 (10:15→21:28)
[2023-02-16] MEDS: DEXAMETHASONE SOD PHOSPHATE 4 MG/1 ML VIAL IVPUSH SCH (10:15)
[2023-02-16] MEDS: MUPIROCIN 2% TOPICAL OINTMENT FOR DECOLONIZATION NS SCH ×2 (10:16→21:28)
[2023-02-16] MEDS: CEFTRIAXONE 1 GM in DEXTROSE 5%-WATER - 50 ML IVPB SCH (10:16)
[2023-02-16 13:29] LABS: HEMATOCRIT 26.2 % (32.4-45.2); HEMOGLOBIN 8.5 GM/dL (10.7-15.3); MCH 30.3 pg (25.7-33.7); MCHC 32.4 g/dl (32.0-36.0); MEAN CELL VOLUME 93.6 fl (80-96); MEAN PLT VOLUME 9.6 fl (7.5-11.1); PLATELET COUNT 151 10^3/uL (134-434); RBC 2.79 M/mm3 (3.60-5.2); WHITE BLOOD COUNT 14.7 K/mm3 (4.0-10.0)
[2023-02-16 13:36] VITALS: BMI 17.5
[2023-02-16 13:52] LABS: POTASSIUM 4.4 mmol/L (3.5-5.1)
[2023-02-16 13:57] LABS: BLOOD UREA NITROGEN 54.1 mg/dL (7-18); MAGNESIUM 1.7 mg/dL (1.8-2.4)
[2023-02-16 14:00] LABS: CREATININE 0.5 mg/dL (0.55-1.3); PHOSPHOROUS 3.2 mg/dL (2.5-4.9)
[2023-02-16] MEDS ORDERED: LORazepam 2 MG/ML SDV VIAL IVPUSH STA (20:51)
[2023-02-16] MEDS: ATORVASTATIN CA 40 MG TABLET (FP) PO SCH (21:10)
[2023-02-16] MEDS: CHLORHEXIDINE GLUCONATE 4% CLEANSER FOR DECOLONIZATION TP SCH (21:10)
[2023-02-16] MEDS: SODIUM CHLORIDE 1,000 ML IV SCH (23:51)
[2023-02-17] MEDS: methaDONE HCL 40 MG DISPERSABLE TABLET PO SCH (05:08)
[2023-02-17] MEDS ORDERED: RAPID SEQUENCE INTUBATION KIT NR ONE (07:25)
[2023-02-17 07:30] LABS: HEMATOCRIT 32.2 % (32.4-45.2); HEMOGLOBIN 10.2 GM/dL (10.7-15.3); MCH 30.2 pg (25.7-33.7); MCHC 31.7 g/dl (32.0-36.0); MEAN CELL VOLUME 95.3 fl (80-96); MEAN PLT VOLUME 10.5 fl (7.5-11.1); PLATELET COUNT 186 10^3/uL (134-434); RBC 3.38 M/mm3 (3.60-5.2); RDW 14.8 % (11.6-15.6); WHITE BLOOD COUNT 20.2 K/mm3 (4.0-10.0)
[2023-02-17 07:48] LABS: POTASSIUM 4.8 mmol/L (3.5-5.1)
[2023-02-17 07:53] LABS: CALCIUM 9.6 mg/dL (8.5-10.1)
[2023-02-17 07:54] LABS: MAGNESIUM 1.9 mg/dL (1.8-2.4)
[2023-02-17] MEDS ORDERED: NOREPINEPHRINE BITARTRATE 4 MG/4 ML ML IV ONE (07:54)
[2023-02-17] MEDS ORDERED: ROCURONIUM BROMIDE 50 MG/5 ML VIAL IV ONE (07:54)
[2023-02-17 07:57] LABS: CREATININE 0.7 mg/dL (0.55-1.3); PHOSPHOROUS 3.8 mg/dL (2.5-4.9)
[2023-02-17] MEDS ORDERED: NOREPINEPHRINE BITARTRATE 4,000 MCG in DEXTROSE 5%-WATER - 496 ML IV SCH (08:00)
[2023-02-17] MEDS ORDERED: MIDAZOLAM HCL 2 MG/2 ML SINGLE DOSE VIAL ONE (08:05)
[2023-02-17] MEDS ORDERED: MIDAZOLAM HCL 2 MG/2 ML SINGLE DOSE VIAL IVPUSH ONE (08:15)
[2023-02-17] MEDS ORDERED: KETAMINE HCL 200 MG/20 ML VIAL IVPUSH ONE (08:15)
[2023-02-17] MEDS ORDERED: VASOPRESSIN 20 UNITS/ML VIAL IV ONE (09:20)
[2023-02-17] MEDS ORDERED: VASOPRESSIN 40 UNITS/100 ML BAG IV SCH (09:30)
[2023-02-17] MEDS ORDERED: EPINEPHrine 1:10,000 (P-F SYR) 1 MG/10 ML DISP.SYRIN ONE (09:58)
[2023-02-17 12:36] VITALS: BP 82/37; PULSE 98; RESP 30; TEMP 94
== END 2023-02-17 10:20 | disposition expired | DRG 208 ==
LOC: JER 22:59 → JERBED 02-11 04:10 → J4S 02-11 18:54 → JICU 02-14 17:54
PROVIDERS: ADMIT Internal Medicine; ATTEND Family Medicine
PROC: 30233N1 Transfusion of Nonautologous Red Blood Cells into Peripheral Vein, Percutaneous Approach (ICD-10-PCS; 2023-02-15)
PROC: 0BH17EZ Insertion of Endotracheal Airway into Trachea, Via Natural or Artificial Opening (ICD-10-PCS; principal; 2023-02-17)
PROC: 5A1935Z Respiratory Ventilation, Less than 24 Consecutive Hours (ICD-10-PCS; 2023-02-17)
PROC: 05HM33Z Insertion of Infusion Device into Right Internal Jugular Vein, Percutaneous Approach (ICD-10-PCS; 2023-02-17)
PROC: B543ZZA Ultrasonography of Right Jugular Veins, Guidance (ICD-10-PCS; 2023-02-17)
PROC: XW033E5 Introduction of Remdesivir Anti-infective into Peripheral Vein, Percutaneous Approach, New Technology Group 5 (ICD-10-PCS; 2023-02-17)
PROC: 5A12012 Performance of Cardiac Output, Single, Manual (ICD-10-PCS; 2023-02-17)
DX: U07.1 COVID-19 (principal); I63.89 Other cerebral infarction; J12.82 Pneumonia due to coronavirus disease 2019; J96.01 Acute respiratory failure with hypoxia; A41.89 Other specified sepsis; R65.21 Severe sepsis with septic shock; I69.351 Hemiplegia and hemiparesis following cerebral infarction affecting right dominant side; F11.20 Opioid dependence, uncomplicated; L97.818 Non-pressure chronic ulcer of other part of right lower leg with other specified severity; L97.828 Non-pressure chronic ulcer of other part of left lower leg with other specified severity; E87.0 Hyperosmolality and hypernatremia; Z68.1 Body mass index [BMI] 19.9 or less, adult; K92.2 Gastrointestinal hemorrhage, unspecified; R62.7 Adult failure to thrive; I10 Essential (primary) hypertension; F17.210 Nicotine dependence, cigarettes, uncomplicated; I46.9 Cardiac arrest, cause unspecified; R29.716 NIHSS score 16; I69.392 Facial weakness following cerebral infarction; I73.89 Other specified peripheral vascular diseases; F32.A Depression, unspecified; Z88.0 Allergy status to penicillin
CPT/HCPCS: 0241U-QW; 36415; 36430; 36600; 70450-TC; 70496-TC; 70498-TC; 70551-TC; 71045-TC-FY; 71275-TC; 74018-TC-FY; 80048; 80053; 82271; 82272; 82728; 82803; 82962; 83605; 83615; 83735; 83880; 84100; 84443; 84460; 84484; 85025; 85027; 85379; 85384; 85610; 85730; 86140; 86850; 86900; 86901; 86922; 87899; 93005; 93010; 93306-TC; 93971; 99285-25; C9399; J1100; J3490; P9058; Q9967